=== PATIENT | female | born 1980 | race Caucasian/White ===

== ENCOUNTER → 2019-01-04 | Outpatient (CLI) | payer OTHER ==
[~2019-01-04] MED LIST: AMLO5TAB4 PO
== END | disposition home or self-care (01) ==
LOC: CFH 08:44
PROVIDERS: ATTEND Internal Medicine Cardiovascular Disease
DX: R06.02 Shortness of breath (principal); I51.7 Cardiomegaly; Z87.891 Personal history of nicotine dependence
CPT/HCPCS: 93306

== ENCOUNTER → 2019-04-01 | Outpatient (CLI) | payer OTHER ==
[~2019-04-01] MED LIST changes: +AZEL30CR TP; +CHOL10003 PO; +IRON PO; +LEVO50TA5 PO; +MACITENTAN PO; +MAGN400T36 PO; +POTASSIUM PO; +PRENATAL PO; +SPIR50TA4 PO; +TURM538C PO; +[UNRECOGNIZED DRUG - OTHER] PO
[2019-04-01 14:21] LABS: BASOPHILS # (AUTO) 0.05 x10^3/uL (0-0.1); BASOPHILS % (AUTO) 1 % (0-1); EOSINOPHILS # (AUTO) 0.08 x10^3/uL (0-0.4); EOSINOPHILS % (AUTO) 1 % (1-7); LYMPHOCYTES # (AUTO) 1.76 x10^3/uL (1-3.4); LYMPHOCYTES % (AUTO) 20 % (22-44); MD NO; MEAN CORPUSCULAR HEMOGLOBIN 26.6 pg (27.0-34.8); MEAN CORPUSCULAR HGB CONC 31.8 g/dL (32.4-35.8); MEAN CORPUSCULAR VOLUME 83.6 fL (80-100); MEAN PLATELET VOLUME 8.4 fL (7.4-10.4); MONOCYTES % (AUTO) 9 % (2-9); NEUTROPHILS # (AUTO) 6.22 x10^3/uL (1.8-6.8); NEUTROPHILS % (AUTO) 70 % (42-75); PLATELET COUNT 323 x10^3/uL (130-400); RED BLOOD COUNT 4.99 x10^6/uL (3.82-5.3); RED CELL DISTRIBUTION WIDTH 21.3 % (9.6-15.2)
[2019-04-01 14:26] LABS: MICROSCOPIC NOT IND
[2019-04-01 14:29] LABS: CULTURE INDICATED? NO
[2019-04-01 14:35] LABS: ALBUMIN 3.8 g/dL (3.4-5.0); CHLORIDE 109 mmol/L (98-107)
[2019-04-01 14:43] LABS: ALANINE AMINOTRANSFERASE 17 U/L (12-78); ALKALINE PHOSPHATASE 63 U/L (45-117); ANION GAP 8 mmol/L (5-15); BILIRUBIN,TOTAL 0.3 mg/dL (0.2-1.0); CREATININE 0.78 mg/dL (0.55-1.02); TOTAL PROTEIN 7.5 g/dL (6.4-8.2)
== END | disposition home or self-care (01) ==
LOC: STAR 13:24
PROVIDERS: ATTEND Obstetrics & Gynecology Gynecology
DX: Z01.818 Encounter for other preprocedural examination (principal); N89.3 Dysplasia of vagina, unspecified
CPT/HCPCS: 36415; 80053; 81003; 84703; 85025

== ENCOUNTER 2019-04-12 05:27 | Day surgery (SDC) | payer OTHER ==
[~2019-04-12] VITALS: Ht 175.3 cm; Wt 101.6 kg
[2019-04-12 06:12] VITALS: BP 112/78
[2019-04-12] MEDS ORDERED: LACTATED RINGERS 1,000 ML IV SCH (06:14)
[2019-04-12 06:46] LABS: HCG UR SG 1.021 (1.003-1.030)
[2019-04-12] MEDS ORDERED: FLUORESCEIN SODIUM 500 MG/5 ML ONE (06:51)
[2019-04-12] MEDS ORDERED: EPINEPHRINE 1 MG/ML, 1ML ONE (06:51)
[2019-04-12] MEDS ORDERED: LIDOCAINE 1%, 20ML ONE (06:52)
[2019-04-12] MEDS ORDERED: ACETAMINOPHEN 500 MG TABLET PO ONE (07:00)
[2019-04-12] MEDS ORDERED: GABAPENTIN 300 MG CAPSULE PO ONE (07:00)
[2019-04-12] MEDS ORDERED: MIDAZOLAM 1 MG/ML, 2ML ONE (07:06)
[2019-04-12] MEDS ORDERED: FENTANYL PF 250 MCG/5ML ONE (07:06)
[2019-04-12] MEDS ORDERED: CEFAZOLIN 1,000 MG ONE (07:07)
[2019-04-12] MEDS ORDERED: PROPOFOL 10 MG/ML, 20ML ONE (07:07)
[2019-04-12] MEDS ORDERED: DEXAMETHASONE 4 MG/ML, 1ML ONE (07:07)
[2019-04-12] MEDS ORDERED: ONDANSETRON 2MG/ML, 2ML ONE (07:07)
[2019-04-12] MEDS ORDERED: SUCCINYLCHOLINE 20 MG/ML, 10ML ONE (07:07)
[2019-04-12] MEDS ORDERED: INDIGO CARMINE 0.8%, 5ML ONE (07:41)
[2019-04-12] MEDS ORDERED: PROMETHAZINE 25 MG/ML, 1ML IV PRN (08:00)
[2019-04-12] MEDS ORDERED: LABETALOL 5MG/ML, 20ML IV PRN (08:00)
[2019-04-12] MEDS ORDERED: hydrALAzine 20 MG/ML, 1ML IV PRN (08:00)
[2019-04-12] MEDS ORDERED: MEPERIDINE/PF 25MG/ML,1ML IVPush PRN (08:00)
[2019-04-12] MEDS ORDERED: ONDANSETRON 2MG/ML, 2ML IV PRN (08:00)
[2019-04-12] MEDS ORDERED: HYDROmorphone 2 MG/ML, 1ML IVPush PRN (08:00)
[2019-04-12] MEDS ORDERED: FENTANYL PF 100 MCG/2ML IV PRN (08:00)
[2019-04-12] MEDS ORDERED: EPHEDRINE 50 MG/ML, 1ML IVPush PRN (08:00)
[2019-04-12] MEDS ORDERED: KETOROLAC 30 MG/1 ML ONE (08:44)
[2019-04-12] MEDS ORDERED: MEPERIDINE/PF 25MG/ML,1ML ONE (09:03)
[2019-04-12] MEDS ORDERED: OXYcodone 5 MG/5 ML ORAL.SOL UDC ONE (09:03)
[2019-04-12] MEDS: OXYcodone 5 MG/5 ML ORAL.SOL UDC PO PRN ×2 (09:05→13:40)
[2019-04-12] MEDS ORDERED: PROMETHAZINE 25 MG/ML, 1ML ONE (09:36)
== END 2019-04-12 15:50 | disposition home or self-care (01) ==
LOC: OUT 05:27
PROVIDERS: ATTEND Obstetrics & Gynecology Gynecology
DX: D06.9 Carcinoma in situ of cervix, unspecified (principal); N73.6 Female pelvic peritoneal adhesions (postinfective); N80.0 Endometriosis of uterus; I10 Essential (primary) hypertension; E03.9 Hypothyroidism, unspecified; I27.20 Pulmonary hypertension, unspecified; E66.3 Overweight; Z79.890 Hormone replacement therapy; Z79.899 Other long term (current) drug therapy; Z88.0 Allergy status to penicillin; Z98.51 Tubal ligation status; Z83.3 Family history of diabetes mellitus; Z80.0 Family history of malignant neoplasm of digestive organs
CPT/HCPCS: 36415; 58260; 81025; 85014; 88307; J0171; J0330; J0690; J1100; J1885; J2175; J2250; J2405; J2550; J2704; J3010; J7120

== ENCOUNTER → 2020-01-02 | Outpatient (CLI) | payer OTHER | END | disposition home or self-care (01) | LOC: CFH 09:55 | PROVIDERS: ATTEND Internal Medicine Cardiovascular Disease | DX: I37.1 Nonrheumatic pulmonary valve insufficiency (principal); R06.02 Shortness of breath; I27.0 Primary pulmonary hypertension | CPT/HCPCS: 93306 ==